=== PATIENT | male | born 1955 | race Caucasian/White ===

== ENCOUNTER 2019-07-17 13:01 | Outpatient (CLI) | payer MEDICARE, OTHER, SELFPAY ==
[2019-07-17 14:30] VITALS: O2SAT 88
== END 2019-07-17 13:02 | disposition home or self-care (01) ==
LOC: RT 13:02
PROVIDERS: Family Provider Family Medicine; PCP Family Medicine; Visit Provider Internal Medicine Critical Care Medicine
DX: J44.9 Chronic obstructive pulmonary disease, unspecified (principal)
CPT/HCPCS: 94060; 94726; 94729; J7611

== ENCOUNTER 2019-07-19 08:59 | Outpatient (CLI) | payer MEDICARE, OTHER, SELFPAY ==
--- NOTE | 2019-07-19 09:07 | MM_ITS ---
WS: [id number] BILATERAL DIGITAL DIAGNOSTIC MAMMOGRAM MAMMOGRAPHY WITH CAD CLINICAL INFORMATION: GYNECOMASTIA ON LEFT COMPARISON: None. TECHNIQUE: Bilateral CC, MLO, and ML views. FINDINGS: Subareolar fibroglandular densities bilaterally. Fibroglandular tissue more prominent on the left. Pa lpable marker left areola region. No definite mammographic abnormalities. Ultrasound is pending. ULTRASOUND BREAST LEFT TECHNIQUE: Ultrasound left breast focused area of concern. CLINICAL INFORMATION: GYNECOMASTIA ON LEFT COMPARISON: None. FINDINGS: Ultrasound bilateral breasts. Ultrasound left breast area of concern. Bilateral subareolar fibrogland ular tissue consistent with mild gynecomastia left greater than right. No focal mass or lesion. No le sions to target for biopsy. MM/[place] [id number] IMPRESSION: BI-RADS: 2-Benign FOLLOW UP: See Report Additional management of the palpable abnormality should be based on clinical g rounds.
== END 2019-07-19 09:00 | disposition home or self-care (01) ==
LOC: RADSHAW 08:59
PROVIDERS: Family Provider Family Medicine; PCP Family Medicine; Visit Provider Family Medicine
DX: N62 Hypertrophy of breast (principal)
CPT/HCPCS: 76642; 77066

== ENCOUNTER 2019-12-13 08:06 | Outpatient (CLI) | payer MEDICARE, BC, SELFPAY ==
--- NOTE | 2019-12-13 08:15 | CT_ITS ---
WS: [id number] CT CHEST WITH INTRAVENOUS CONTRAST HISTORY: LUNG NODULE TECHNIQUE: Contiguous 5 mm axial imaging performed on the thorax. Coronal and sagittal reformats are submitted. All CT scans at [facility] use at least one of these dose optimization techniq ues: automated exposure control; mA and/or kV adjustment per patient size (includes targeted exams wh ere dose is matched to clinical indication); or iterative reconstruction. CONTRAST: Omnipaque 300; 95 mL IV. DLP: 559.6 mGy.cm COMPARISON: 04/10/2019, 03/14/2018, 11/11/2016 Lungs and central airway: Hyperinflated lungs. Chronic emphysema with biapical blebs and pleural thic kening. Bilateral upper lobe bulla disease. 5 mm nodule in the LEFT upper lobe, image 26 of series 3. No change since 2012. There is an additional 5 mm nodule adjacent to the superior LEFT major fissure in the LEFT upper lobe measuring 5 mm which is also stable since 2012. There is an area of pleural t hickening and tethering RIGHT upper lobe in contact with the major fissure. Slightly improved and dec reased in size since 04/10/2019. Pleura: Normal. No pleural effusion. Heart and pericardium: Normal size heart. No pericardial effusion. Mediastinum and reynaldo: RIGHT hilar lymph node measures 7 mm. No increasing or new lymph nodes. Vessels: Mild atherosclerosis aorta. Chest wall and lower neck: No soft tissue masses. Upper abdomen: Small hiatal hernia. Mild stranding around the kidneys bilaterally. Osseous structures: Vertebroplasty at T6 and chronic anterior wedging with no change. CT/CT chest w con* [id number] IMPRESSION: 1. Severe chronic emphysema. 2. Long-term stability of 5 mm noncalcified nodules LEFT upper lobe. No additi onal follow-up necessary. 3. Atherosclerosis aorta. 4. Small hiatal hernia.
[2019-12-13] MEDS: iohexol 300 mg/mL 100 mL Btl IV (08:58)
== END 2019-12-13 08:07 | disposition home or self-care (01) ==
LOC: RADWPI 08:10
PROVIDERS: PCP Family Medicine; Visit Provider Nurse Practitioner Family
DX: R91.1 Solitary pulmonary nodule (principal); J43.9 Emphysema, unspecified; I70.0 Atherosclerosis of aorta; K44.9 Diaphragmatic hernia without obstruction or gangrene
CPT/HCPCS: 71260; Q9967

== ENCOUNTER 2020-03-01 15:01 | Inpatient (IN) | payer MEDICARE, BC, SELFPAY ==
[2020-03-01] VITALS (12 sets, daily range): BP systolic 100–134; BP diastolic 57–77; PULSE 66–88; RESP 17–22; TEMP 36.7–36.8; O2SAT 96–100; BMI 16.5
--- NOTE | 2020-03-01 15:03 | CT_ITS ---
WS: [id number] CT HEAD NONCONTRAST HISTORY: falls TECHNIQUE: Contiguous axial imaging performed through the brain in 2.5 mm imaging. Bone and soft tiss ue windows. Sagittal and coronal reformats reviewed. All CT scans at [facility] use at ast one of these dose optimization techniques: automated exposure control; mA and/or kV adjustment pe r patient size (includes targeted exams where dose is matched to clinical indication); or iterative r econstruction. DLP: 846.53 mGy.cm COMPARISON: 07/18/2017 No acute intracranial hemorrhage, midline shift or mass effect. No atrophy or prior infarcts or herniation. Ventricles: Normal size with no hydrocephalus. Paranasal sinuses: As visualized are clear. Mastoid air cells: Well pneumatized. Calvarium and scalp: Skull is intact with no soft tissue edema or swelling. CT/CT head wo con* [id number] IMPRESSION: Negative head CT.
--- NOTE | 2020-03-01 15:03 | XRR_ITS ---
PROCEDURE INFORMATION: Exam: XR Chest, 1 View Exam date and time: 03/01/2020 3:15 PM Age: 64 years old Clinical indication: Injury or trauma; Initial encounter; Blunt trauma (contusions or hematomas); Shortness of breath; Patient HX: Double vision, falls, SOB, weak TECHNIQUE: Imaging protocol: XR of the chest Views: 1 view. COMPARISON: CT chest w con* [id number] 12/13/2019 8:49 AM FINDINGS: Lungs: The lungs are hyperexpanded consistent with COPD. Pleural space: Unremarkable. No pleural effusion. No pneumothorax. Heart/Mediastinum: Unremarkable. No cardiomegaly. Bones/joints: Kyphoplasty is present in the T6 vertebral body. XR/XR chest 1V portable [id number] IMPRESSION: 1. No acute findings. 2. COPD 3. Left hilar granulomas 4. Postsurgical hardware cervical spine 5. Kyphoplasty T6 vertebral body
[2020-03-01 15:21] LABS: Arterial Blood Gas Hematocrit 36.9 % (42-52); Blood Gas Allen Test Pos; Blood Gas Sample Type Arterial; PO2 ABG 87.6 mmHg (80.0-100.0)
[2020-03-01 15:22] LABS: ABG PCO2 84.5 mmHg (35-45); Base Excess ABG 23.3 mmol/L (-2.0-2.0); Blood Gas Operator Identificat ED; Blood Gas Sample Site Radial, right; HCO3 ABG 52.7 mmol/L (22-26); Oxygen Device NC
[2020-03-01 15:23] LABS: Basophils % 0.2 %; Eosinophils % 0.2 %; Hematocrit 43.7 % (42.0-52.0); Hemoglobin 13.3 g/dL (11.7-16.6); Lymphocytes # 1.9 10^3/uL (0.8-4.8); Lymphocytes % 20.8 %; Mean Corpuscular HGB Conc 30.4 g/dL (30.0-36.0); Mean Corpuscular Hemoglobin 29.9 pg (28.0-34.0); Mean Corpuscular Volume 98.2 fL (80-94); Mean Platelet Volume 12.9 fL (7.4-10.4); Monocytes # 0.6 10^3/uL (0.2-0.9); Monocytes % 6.4 %; Neutrophils # 6.72 10^3/uL (1.8-7.7); Neutrophils % 72.1 %; Nucleated Red Blood Cells % 0 %; Platelet Count 151 10^3/cmm (130-400); Red Blood Count 4.45 10^6/uL (4.1-5.3); Red Cell Distribution Width 12.4 % (12.1-15.1); White Blood Count 9.3 10^3/uL (4.0-10.0)
--- NOTE | 2020-03-01 15:23 | XRR_ITS ---
PROCEDURE INFORMATION: Exam: XR Right Foot Complete Exam date and time: 03/01/2020 4:20 PM Age: 64 years old Clinical indication: Pain and injury or trauma; Initial encounter; Blunt trauma; Foot; Bilateral; Patient HX: Sob/weakness last 2 days with multiple falls; Additional info: Pain/injury TECHNIQUE: Imaging protocol: XR Right foot. Views: 3 or more views. COMPARISON: No relevant prior studies available. FINDINGS: Bones/joints: Negative for acute bony abnormalities. Soft tissues: Soft tissue edema is seen in the dorsal foot XR/XR foot RT min 3V* [id number] IMPRESSION: 1. No acute bone abnormality 2. Soft tissue edema dorsal foot
--- NOTE | 2020-03-01 15:23 | XRR_ITS ---
PROCEDURE INFORMATION: Exam: XR Left Foot Complete Exam date and time: 03/01/2020 4:20 PM Age: 64 years old Clinical indication: Pain and injury or trauma; Initial encounter; Blunt trauma; Foot; Bilateral; Patient HX: SOB, weakness with multiple falls; Additional info: Pain/injury TECHNIQUE: Imaging protocol: XR Left foot. Views: 3 or more views. COMPARISON: No relevant prior studies available. FINDINGS: Bones/joints: Negative for acute fracture or focal bony abnormality. Soft tissues: Diffuse soft tissue edema dorsal foot XR/XR foot LT min 3V* [id number] IMPRESSION: 1. Diffuse soft tissue edema dorsal foot 2. Otherwise No acute findings.
--- NOTE | 2020-03-01 15:23 | ECG_ITS ---
[facility] Test Date: 2020-03-01 Pat Name: Harvey Guerra Department: Room: Gender: Male Disability Insurance Claim Examiner: : 1955 Requested By: Karin Roberts Order Number: [id number] Farrell MD: Galilea Blakely M.D. Measurements Intervals [place] Rate: 69 P: 81 OR: 145 QRS: 93 QRSD: 81 T: 71 QT: 385 QTc: 413 Interpretive Statements SINUS RHYTHM BORDERLINE RIGHT AXIS DEVIATION [QRS AXIS > 90] Compared to ECG 04/06/2019 11:26:46 Sinus tachycardia no longer present T-wave abnormality no longer present Possible ischemia no longer present Electronically Signed On 03-02-2020 8:17:41 CDT by Galilea Blakely M.D. [id number]
--- NOTE | 2020-03-01 15:42 | W.ED.WEAKNES ---
HPI - Weakness General: Chief complaint: Weakness Stated complaint: SOB/ WEAKNESS/ MULTI FALLS Time Seen by Provider: 03/01/20 15:14 Source: patient and family Limitations: no limitations History of Present Illness: HPI Narrative: Mr. Guerra is a nice 64-year-old male who comes in complaining of increased shortness of breath for the past 2 days. He is also complaining of increased weakness for the past 2 days. He states that he is fallen twice because of this weakness. He has pain in both feet from the fall. He states that he does have a cough that is productive of clear sputum. He denies any fevers or chills. He denies any other complaints. Associated symptoms: Denies chest pain, chills, confusion, melena, diaphoresis, dysuria, easy bruising, fever(s), headache(s), nausea, syncope or vomiting Review of Systems Const: Denies: fever(s), chills, body aches or diaphoresis Eyes: Denies: change in vision, blurry vision, photophobia, eye discomfort, eye discharge, eye redness or yellow eyes ENMT: Denies: throat pain, odynophagia, hoarseness, swelling of lips/tongue, ear or mastoid pain, ear discharge, change in hearing or nasal discharge Card: Denies: chest pain, palpitations, irregular heart rhythm, edema, lightheadedness, syncope, pre-syncope, dyspnea on exertion or orthopnea Resp: Reports: dyspnea and productive cough; Denies: wheezing, hemoptysis or chest congestion GI: Denies: abdominal pain, nausea, vomiting, hematemesis, coffee ground emesis, heartburn, diarrhea, constipation, GI cramping, hematochezia or melena : Denies: flank pain, dysuria, urinary frequency, urinary urgency or hematuria Musc: Denies: neck pain, back pain, extremity pain, extremity swelling, joint pain, joint swelling, joint redness, joint warmth or joint stiffness Skin/Breast: Denies: rash, pruritus, erythema, skin pain or skin tenderness Neuro: Denies: headache(s), numbness in extremities, weakness in extremities, sensory changes, lack of coordination, difficulty walking, dizziness, vertigo, confusion, Slurred speech present or seizure-like activity Carlos/Lymph: Denies: easy bruising, easy bleeding, petechiae, purpura or enlarged lymph nodes All/Imm: Denies: urticaria, throat swelling, tongue swelling, facial swelling or acute wheezing PFSH ED PFSH: Medical History (Updated 03/01/20 @ 15:45 by Karin Snyder) Bronchitis, chronic Bullous emphysema Chronic respiratory failure with hypoxia and hypercapnia Congestive heart failure COPD (chronic obstructive pulmonary disease) Essential (primary) hypertension Heart attack Hypoxemia Pressure ulcer, buttock Surgical History H/O hernia repair H/O neck surgery H/O rotator cuff surgery H/O shoulder surgery History of back surgery S/P ileostomy Family History Mother Hyperlipidemia Father Hyperlipidemia Stroke Grandmother Diabetes Social History Smoking and tobacco status: former smoker Quit status (tobacco): has quit using tobacco Year quit tobacco: Mar 2019 - 2PPD x 47 Year Alcohol intake: former Lives independently: Yes Household members: children Current occupational status: retired History of recent travel: No Current gender identity: Male Course Vital Signs: Vital signs: Vital Signs Temperature 98.1 F 03/01/20 15:03 Pulse Rate 76 03/01/20 19:47 Respiratory Rate 21 H 03/01/20 19:47 Blood Pressure 113/68 03/01/20 19:47 Pulse Oximetry 97 03/01/20 19:47 MDM - Weakness MDM Narrative: Medical decision making narrative: Mr. Guerra is a nice 64-year-old male who comes in with generalized weakness for the past 2 days. He has had multiple falls and here he is orthostatic. I am also concerned that he is somewhat oversedated by his narcotic medication. His respiratory distress has improved but I believe he is dehydrated and oversedated and at risk if he goes home. I have reviewed the case with Dr. Olson he agrees to further evaluation care in the hospital. Lab Data: Attestation: I reviewed the patient's lab results. Labs: Lab Results 03/01/20 03/01/20 03/01/20 Range/Units 14:35 14:35 14:35 WBC 9.3 (4.0-10.0) 10^3/ uL RBC 4.45 (4.1-5.3) 10^6/u L Hgb 13.3 (11.7-16.6) g/dL Hct 43.7 (42.0-52.0) % MCV 98.2 H (80-94) fL MCH 29.9 (28.0-34.0) pg MCHC 30.4 (30.0-36.0) g/dL RDW 12.4 (12.1-15.1) % Plt Count 151 (130-400) 10^3/c mm MPV 12.9 H (7.4-10.4) fL Neut % (Auto) 72.1 % Lymph % (Auto) 20.8 % [place] % (Auto) 6.4 % Eos % (Auto) 0.2 % Baso % (Auto) 0.2 % Neut # (Auto) 6.72 (1.8-7.7) 10^3/u L Lymph # (Auto) 1.9 (0.8-4.8) 10^3/u L [place] # (Auto) 0.6 (0.2-0.9) 10^3/u L Eos # (Auto) 0.0 (0.0-0.8) 10^3/u L Baso # (Auto) 0.0 (0.0-0.1) 10^3/u L Nucleated RBC % (a uto) 0 % Nucleated RBCs # 0.0 /100WBC Specimen Type Sample Site ABG pH (7.35-7.45) ABG pCO2 (35-45) mmHg ABG pO2 (80.0-100.0) mmH g ABG HCO3 (22-26) mmol/L ABG Base Excess (-2.0-2.0) mmol/ L Wil Test Hematocrit (42-52) % O2 Delivery Device O2 Liters/Min % FiO2 % Metal Furniture Repairer ID Sodium 131 L (136-145) mmol/L Potassium 4.4 (3.5-5.1) mmol/L Chloride 79 L (98-107) mmol/L Carbon Dioxide 47 H* (22-29) mmol/L Anion Gap 9.4 (5-19) BUN 9 (8-23) mg/dL Creatinine 0.6 L (0.7-1.2) mg/dL GFR Calculation 136.1 H (90-130) mL/min Glucose 129 H (65-115) mg/dL Calculated Osmolal ity 272 L (285-295) mOsm/k g Lactate (0.5-2.2) mmol/L Calcium 9.7 (8.5-10.5) mg/dL Magnesium 1.7 (1.7-2.3) mg/dL Total Bilirubin 0.4 (0.15-1.2) mg/dL AST 17 (0-40) U/L ALT 12 (0-41) U/L Alkaline Phosphata se 59 (40-130) IU/L Troponin T Baselin e 36 H (0-15) ng/L Troponin T 120 Min [place] (0-15) ng/L Delta Troponin T (0-10) ABS# NT-Pro-B Natriuret Pep 133 H (0-125) pg/mL Total Protein 6.6 (6.6-8.7) g/dL Albumin 4.0 (3.5-5.2) g/dL Globulin 2.6 (1.3-4.6) g/dL Urine Color (Yellow) Urine Appearance (CLEAR) Urine pH (5-7) Ur Specific Gravit y (1.005-1.030) Urine Protein (Negative) Urine Glucose (UA) (Normal) Urine Ketones (Negative) Urine Blood (Negative) Urine Nitrate (Negative) Urine Bilirubin (Negative) Prot Sulfosalicyli c Acd (Negative) Urine Urobilinogen (Negative) mg/dL Ur Leukocyte Marcela ase (Negative) Urine RBC (0-2) /hpf Urine WBC (0-5) /hpf Ur Squamous Epith Cells (0-5) /hpf Amorphous Sediment Urine Bacteria (NONE) /hpf SARS-CoV-2 Ag (Rap id) (Negative) 03/01/20 03/01/20 03/01/20 Range/Units 15:11 16:09 16:55 WBC (4.0-10.0) 10^3/ uL RBC (4.1-5.3) 10^6/u L Hgb (11.7-16.6) g/dL Hct (42.0-52.0) % MCV (80-94) fL MCH (28.0-34.0) pg MCHC (30.0-36.0) g/dL RDW (12.1-15.1) % Plt Count (130-400) 10^3/c mm MPV (7.4-10.4) fL Neut % (Auto) % Lymph % (Auto) % [place] % (Auto) % Eos % (Auto) % Baso % (Auto) % Neut # (Auto) (1.8-7.7) 10^3/u L Lymph # (Auto) (0.8-4.8) 10^3/u L [place] # (Auto) (0.2-0.9) 10^3/u L Eos # (Auto) (0.0-0.8) 10^3/u L Baso # (Auto) (0.0-0.1) 10^3/u L Nucleated RBC % (a uto) % Nucleated RBCs # /100WBC Specimen Type Arterial Sample Site Radial, right ABG pH 7.40 (7.35-7.45) ABG pCO2 84.5 H* (35-45) mmHg ABG pO2 87.6 (80.0-100.0) mmH g ABG HCO3 52.7 H (22-26) mmol/L ABG Base Excess 23.3 H (-2.0-2.0) mmol/ L Wil Test Pos Hematocrit 36.9 L (42-52) % O2 Delivery Device Nc O2 Liters/Min 3.0 % FiO2 32.0 % Metal Furniture Repairer ID Ed Sodium (136-145) mmol/L Potassium (3.5-5.1) mmol/L Chloride (98-107) mmol/L Carbon Dioxide (22-29) mmol/L Anion Gap (5-19) BUN (8-23) mg/dL Creatinine (0.7-1.2) mg/dL GFR Calculation (90-130) mL/min Glucose (65-115) mg/dL Calculated Osmolal ity (285-295) mOsm/k g Lactate 0.9 (0.5-2.2) mmol/L Calcium (8.5-10.5) mg/dL Magnesium (1.7-2.3) mg/dL Total Bilirubin (0.15-1.2) mg/dL AST (0-40) U/L ALT (0-41) U/L Alkaline Phosphata se (40-130) IU/L Troponin T Baselin e (0-15) ng/L Troponin T 120 Min [place] (0-15) ng/L Delta Troponin T (0-10) ABS# NT-Pro-B Natriuret Pep (0-125) pg/mL Total Protein (6.6-8.7) g/dL Albumin (3.5-5.2) g/dL Globulin (1.3-4.6) g/dL Urine Color (Yellow) Urine Appearance (CLEAR) Urine pH (5-7) Ur Specific Gravit y (1.005-1.030) Urine Protein (Negative) Urine Glucose (UA) (Normal) Urine Ketones (Negative) Urine Blood (Negative) Urine Nitrate (Negative) Urine Bilirubin (Negative) Prot Sulfosalicyli c Acd (Negative) Urine Urobilinogen (Negative) mg/dL Ur Leukocyte Marcela ase (Negative) Urine RBC (0-2) /hpf Urine WBC (0-5) /hpf Ur Squamous Epith Cells (0-5) /hpf Amorphous Sediment Urine Bacteria (NONE) /hpf SARS-CoV-2 Ag (Rap id) Negative (Negative) 03/01/20 03/01/20 Range/Units 16:55 17:56 WBC (4.0-10.0) 10^3/ uL RBC (4.1-5.3) 10^6/u L Hgb (11.7-16.6) g/dL Hct (42.0-52.0) % MCV (80-94) fL MCH (28.0-34.0) pg MCHC (30.0-36.0) g/dL RDW (12.1-15.1) % Plt Count (130-400) 10^3/c mm MPV (7.4-10.4) fL Neut % (Auto) % Lymph % (Auto) % [place] % (Auto) % Eos % (Auto) % Baso % (Auto) % Neut # (Auto) (1.8-7.7) 10^3/u L Lymph # (Auto) (0.8-4.8) 10^3/u L [place] # (Auto) (0.2-0.9) 10^3/u L Eos # (Auto) (0.0-0.8) 10^3/u L Baso # (Auto) (0.0-0.1) 10^3/u L Nucleated RBC % (a uto) % Nucleated RBCs # /100WBC Specimen Type Sample Site ABG pH (7.35-7.45) ABG pCO2 (35-45) mmHg ABG pO2 (80.0-100.0) mmH g ABG HCO3 (22-26) mmol/L ABG Base Excess (-2.0-2.0) mmol/ L Wil Test Hematocrit (42-52) % O2 Delivery Device O2 Liters/Min % FiO2 % Metal Furniture Repairer ID Sodium (136-145) mmol/L Potassium (3.5-5.1) mmol/L Chloride (98-107) mmol/L Carbon Dioxide (22-29) mmol/L Anion Gap (5-19) BUN (8-23) mg/dL Creatinine (0.7-1.2) mg/dL GFR Calculation (90-130) mL/min Glucose (65-115) mg/dL Calculated Osmolal ity (285-295) mOsm/k g Lactate (0.5-2.2) mmol/L Calcium (8.5-10.5) mg/dL Magnesium (1.7-2.3) mg/dL Total Bilirubin (0.15-1.2) mg/dL AST (0-40) U/L ALT (0-41) U/L Alkaline Phosphata se (40-130) IU/L Troponin T Baselin e (0-15) ng/L Troponin T 120 Min [place] 41.38 H (0-15) ng/L Delta Troponin T 5.38 (0-10) ABS# NT-Pro-B Natriuret Pep (0-125) pg/mL Total Protein (6.6-8.7) g/dL Albumin (3.5-5.2) g/dL Globulin (1.3-4.6) g/dL Urine Color Yellow (Yellow) Urine Appearance Sl hazy (CLEAR) Urine pH 8 H (5-7) Ur Specific Gravit y 1.010 (1.005-1.030) Urine Protein Neg (Negative) Urine Glucose (UA) Norm (Normal) Urine Ketones 1+ H (Negative) Urine Blood Neg (Negative) Urine Nitrate Negative (Negative) Urine Bilirubin Neg (Negative) Prot Sulfosalicyli c Acd Negative (Negative) Urine Urobilinogen Norm (Negative) mg/dL Ur Leukocyte Marcela ase Negative (Negative) Urine RBC None (0-2) /hpf Urine WBC 0-4 H (0-5) /hpf Ur Squamous Epith Cells 15-25 H (0-5) /hpf Amorphous Sediment Not Reportable Urine Bacteria Trace (NONE) /hpf SARS-CoV-2 Ag (Rap id) (Negative) Imaging Data^: CXR: Attestation: I personally reviewed and interpreted this imaging study as follows: My impression: No acute cardiopulmonary findings. Findings consistent with COPD. Right foot: Radiologist's impression: [place] [address] XRay Report Signed Patient: Harvey Guerra Unit #: [id number] : 1955 Age/Sex: 64 / M ADM Date: 03/01/20 Loc: ER Room/Bed: Attending Dr: Ordering Provider/Ordering MD: Karin Snyder DO Date of Service: 03/01/20 Procedure(s): XR foot RT min 3V* [id number] Accession Number(s): [id number] Report Number: [id number] PROCEDURE INFORMATION: Exam: XR Right Foot Complete Exam date and time: 03/01/2020 4:20 PM Age: 64 years old Clinical indication: Pain and injury or trauma; Initial encounter; Blunt trauma; Foot; Bilateral; Patient HX: Sob/weakness last 2 days with multiple falls; Additional info: Pain/injury TECHNIQUE: Imaging protocol: XR Right foot. Views: 3 or more views. COMPARISON: No relevant prior studies available. FINDINGS: Bones/joints: Negative for acute bony abnormalities. Soft tissues: Soft tissue edema is seen in the dorsal foot XR/XR foot RT min 3V* [id number] IMPRESSION: 1. No acute bone abnormality 2. Soft tissue edema dorsal foot Dictated By: Saurav Dempsey Signed By: Saurav Dempsey Signed Date/Time: 03/01/20 1641 DD/ 1640 Left foot: Radiologist's impression: [place] [address] XRay Report Signed Patient: Harvey Guerra Unit #: [id number] : 1955 Age/Sex: 64 / M ADM Date: 03/01/20 Loc: ER Room/Bed: Attending Dr: Ordering Provider/Ordering MD: Karin Snyder DO Date of Service: 03/01/20 Procedure(s): XR foot LT min 3V* 29595 Accession Number(s): [id number] Report Number: [id number] PROCEDURE INFORMATION: Exam: XR Left Foot Complete Exam date and time: 03/01/2020 4:20 PM Age: 64 years old Clinical indication: Pain and injury or trauma; Initial encounter; Blunt trauma; Foot; Bilateral; Patient HX: SOB, weakness with multiple falls; Additional info: Pain/injury TECHNIQUE: Imaging protocol: XR Left foot. Views: 3 or more views. COMPARISON: No relevant prior studies available. FINDINGS: Bones/joints: Negative for acute fracture or focal bony abnormality. Soft tissues: Diffuse soft tissue edema dorsal foot XR/XR foot LT min 3V* [id number] IMPRESSION: 1. Diffuse soft tissue edema dorsal foot 2. Otherwise No acute findings. Dictated By: Saurav Dempsey Signed By: Saurav Dempsey Signed Date/Time: 03/01/20 1640 DD/ 1639 CT Head: Radiologist's impression: [place] [address] CT Scan Report Signed Patient: Harvey Guerra Unit #: [id number] : 1955 Age/Sex: 64 / M ADM Date: 03/01/20 Loc: ER Room/Bed: Attending Dr: Ordering Provider/Ordering MD: Idania Benitez , [facility]- Date of Service: 03/01/20 Procedure(s): CT head wo con* [id number] Accession Number(s): [id number] Report Number: [id number] WS: [id number] CT HEAD NONCONTRAST HISTORY: falls TECHNIQUE: Contiguous axial imaging performed through the brain in 2.5 mm imaging. Bone and soft tissue windows. Sagittal and coronal reformats reviewed. All CT scans at [facility] use at least one of these dose optimization techniques: automated exposure control; mA and/or kV adjustment per patient size (includes targeted exams where dose is matched to clinical indication); or iterative reconstruction. DLP: 846.53 mGy.cm COMPARISON: 07/18/2017 No acute intracranial hemorrhage, midline shift or mass effect. No atrophy or prior infarcts or herniation. Ventricles: Normal size with no hydrocephalus. Paranasal sinuses: As visualized are clear. Mastoid air cells: Well pneumatized. Calvarium and scalp: Skull is intact with no soft tissue edema or swelling. CT/CT head wo con* [id number] IMPRESSION: Negative head CT. Dictated By: Sabrina Mack DO Signed By: Sabrina Mack DO Signed Date/Time: 03/01/201546 DD/ EKG Data^: EKG 1: Attestation: I personally reviewed and interpreted this EKG as follows: EKG interpretation date: 03/01/20 EKG interpretation time: 15:48 Interpretation: Normal sinus rhythm at 69 beats a minute, no blocks, normal intervals, nonspecific ST and T wave changes. EKG 2: Attestation: I personally reviewed and interpreted this EKG as follows: EKG interpretation date: 03/01/20 EKG interpretation time: 17:59 Interpretation: Normal sinus rhythm at 65 beats a minute, no acute ST-T wave changes. Discharge Plan Discharge Prescriptions: No Action oxycodone 5 mg tablet 5 mg PO Q6H PRN (Reason: Pain) RF: 0 morphine 30 mg capsule, ER multiphase 24 hr 30 mg PO Q12H RF: 0 gabapentin 800 mg tablet 800 mg PO TID RF: 0 aspirin 81 mg tablet,delayed release (DR/EC) 81 mg PO ONCE RF: 0 montelukast [Singulair] 10 mg tablet 10 mg PO ONCE RF: 0 fluoxetine 10 mg tablet 10 mg PO DAILY RF: 0 tizanidine 4 mg tablet 4 mg PO TID PRN (Reason: MUSCLE SPASMS) RF: 0 spironolactone 25 mg tablet 25 mg PO DAILY RF: 0 folic acid 1 mg tablet 1 mg PO DAILY RF: 0 albuterol sulfate [Ventolin HFA] 90 mcg/actuation HFA aerosol inhaler 2 puff INHALATION Q6H PRN (Reason: Shortness Of Breath) RF: 0 lorazepam 0.5 mg tablet 0.5 mg PO DAILY PRN (Reason: Anxiety) RF: 0 carvedilol 12.5 mg tablet 6.25 mg PO BID RF: 0 albuterol sulfate 2.5 mg /3 mL (0.083 %) solution for nebulization 2.5 mg INHALATION Q6H PRN (Reason: Shortness Of Breath) RF: 0 metoprolol succinate 25 mg tablet extended release 24 hr 25 mg PO DAILY 90 Days Qty: 90 RF: 3 formoterol fumarate [Perforomist] 20 mcg/2 mL solution for nebulization See Rx Instructions .ROUTE .COMPLEX Qty: 60 RF: 11 revefenacin [Yupelri] 175 mcg/3 mL solution for nebulization See Rx Instructions .ROUTE .COMPLEX Qty: 30 RF: 11 budesonide 0.5 mg/2 mL suspension for nebulization See Rx Instructions .ROUTE .COMPLEX Qty: 60 RF: 11 Coding Level of Care Code ED [place] Manager for Khushboo Hyman
[2020-03-01 15:51] LABS: Alanine Aminotransferase 12 U/L (0-41); Alkaline Phosphatase 59 IU/L (40-130); Anion Gap 9.4 (5-19); Aspartate Amino Transferase 17 U/L (0-40); Blood Urea Nitrogen 9 mg/dL (8-23); Calcium 9.7 mg/dL (8.5-10.5); Chloride 79 mmol/L (98-107); Globulin 2.6 g/dL (1.3-4.6); Glomerular Filtration Rate 136.1 mL/min (90-130); Glucose 129 mg/dL (65-115); Magnesium 1.7 mg/dL (1.7-2.3); NT Pro B Type Natriuretic Pept 133 pg/mL (0-125); Osmolality Calculated 272 mOsm/kg (285-295); Potassium 4.4 mmol/L (3.5-5.1); Sodium 131 mmol/L (136-145); Total Bilirubin 0.4 mg/dL (0.15-1.2); Total Protein 6.6 g/dL (6.6-8.7)
[2020-03-01 15:54] LABS: Carbon Dioxide 47 mmol/L (22-29)
[2020-03-01 16:31] LABS: Troponin(5th) Baseline 36 ng/L (0-15)
[2020-03-01 16:34] LABS: Lactate (Lactic Acid level) 0.9 mmol/L (0.5-2.2)
--- NOTE | 2020-03-01 16:53 | PC.NURSE ---
patient swabbed for COVID at this time
[2020-03-01] MEDS: albuterol 8 gm MDI 6 PUFF INHALATION (17:03)
--- NOTE | 2020-03-01 17:23 | ECG_ITS ---
[facility] Test Date: 2020-03-01 Pat Name: Harvey Guerra Department: Room: Gender: Male Bin Tripper Operator: : 1955 Requested By: Karin Roberts Order Number: [id number] Farrell MD: Galilea Blakely M.D. Measurements Intervals [place] Rate: 65 P: 78 [place]: 143 QRS: 93 QRSD: 86 T: 65 QT: 400 QTc: 418 Interpretive Statements SINUS RHYTHM BORDERLINE RIGHT AXIS DEVIATION [QRS AXIS > 90] Compared to ECG 03/01/2020 15:48:49 No significant changes Electronically Signed On 03-02-2020 8:55:35 CDT by Galilea Blakely M.D. [id number]
[2020-03-01 17:26] LABS: Add Urine Microscopic? YES; Bilirubin Urine Neg (Negative); Blood Urine Neg (Negative); Glucose Urine UA Norm (Normal); Ketones Urine 1+ (Negative); Leukocyte Esterase Urine Negative (Negative); Nitrate Urine Negative (Negative); Protein Urine Neg (Negative); Sulfosalicylic Acid Urine Negative (Negative); Urine Appearance SL Hazy (CLEAR); Urine Color Yellow (Yellow); Urobilinogen Urine Norm (Negative); pH Urine 8 (5-7)
[2020-03-01 17:34] LABS: Add Urine Culture? No; Bacteria Urine TRACE /hpf; SARS Covid-2 Antigen Negative (Negative); Squamous Epithelial Cell Urine 15-25 /hpf (0-5); WBC Urine 0-4 /hpf (0-5)
[2020-03-01 18:41] LABS: Troponin 5 2HR 41.38 ng/L (0-15); Troponin 5 2HR Delta 5.38 ABS# (0-10)
--- NOTE | 2020-03-01 19:56 | PM.HP ---
Providers/Chief Complaint Primary Care Provider: Ortega Woods MD Chief Complaint: SOB/ WEAKNESS/ MULTI FALLS History of Present Illness Harvey Guerra is a 64 year old male who carries history of oxygen dependent end-stage COPD, came in with chief complaint of generalized weakness and presyncope. Patient is stating that he has been losing weight, he recently has not noticed fever, excessive sputum production, he is using 3 L of oxygen via the clock, his legs have been swollen for last couple of months, he is usually very tired and struggles to get around in his home, he decided to come to the hospital because of extreme lethargy and presyncopal events. He is stating that his energy level has gone down to the point he is not able to bear weight on his legs, he has fallen on the ground without any syncopal event due to extreme weakness. He has not noticed any chest pain, fever, dysuria, change in bowel movements or seizure-like activities. He uses trilogy at night. He is on multiple narcotics including morphine tizanidine oxycodone and gabapentin, beta-jossy and calcium channel jossy. Diagnostics in the ER revealed normal hemodynamics, he saturating well on 2 L nasal cannula, pH 7.4 PCO2 80, no active restaurant distress seems well compensated, malnourished, BNP 133 with active signs of heart failure, COVID antigen negative, EKG unremarkable for ischemic or infarctive changes, I have requested CTA chest which ruled out pulmonary embolism but x-ray revealed severe edema, no active fractures, head CT unremarkable Review of Systems Const: Reports: chills, body aches, change in appetite, change in weight, fatigue and malaise; Denies: fever(s) Eyes: Denies: change in vision ENMT: Denies: throat pain Card: Reports: edema, swelling of feet/ankles, lightheadedness, pre-syncope and dyspnea on exertion; Denies: chest pain or orthopnea Resp: Reports: dyspnea and non-productive cough GI: Denies: abdominal pain : Denies: flank pain Musc: Reports: neck pain and back pain Skin/Breast: Reports: lesions (Scab around sacral area well-healed lesion) Neuro: Reports: frequent falls Psych: Denies: anxiety Endo: Denies: polyuria Carlos/Lymph: Denies: easy bruising All/Imm: Denies: urticaria Medications/Allergies Home Medications Medication Instructions Recorded Confirmed Last Taken Type albuterol sulfate 90 mcg/actuation 2 puff INHALATION Q6H PRN 06/26/19 03/01/20 Unknown History aerosol inhaler fluoxetine 10 mg tablet 10 mg PO DAILY tab 06/26/19 03/01/20 03/01/20 History folic acid 1 mg tablet 1 mg PO DAILY 06/26/19 03/01/20 03/01/20 History spironolactone 25 mg tablet 25 mg PO DAILY tab 06/26/19 03/01/20 03/01/20 History tizanidine 4 mg tablet 4 mg PO TID PRN 06/26/19 03/01/20 03/01/20 History aspirin 81 mg tablet,delayed 81 mg PO ONCE 06/27/19 03/01/20 03/01/20 History release carvedilol 12.5 mg tablet 6.25 mg PO BID tab 06/27/19 03/01/20 03/01/20 History gabapentin 800 mg tablet 800 mg PO TID 06/27/19 03/01/20 03/01/20 History lorazepam 0.5 mg tablet 0.5 mg PO DAILY PRN tab 06/27/19 03/01/20 02/29/20 History montelukast 10 mg tablet 10 mg PO ONCE 06/27/19 03/01/20 03/01/20 History morphine 30 mg capsule,extended 30 mg PO Q12H cap 06/27/19 03/01/20 03/01/20 History release 24 hr multiphase oxycodone 5 mg tablet 5 mg PO Q6H PRN 06/27/19 03/01/20 03/01/20 History albuterol sulfate 2.5 mg INHALATION Q6H PRN 08/08/19 03/01/20 03/01/20 History metoprolol succinate 25 mg 25 mg PO DAILY 90 Days #90 tab 10/16/19 03/01/20 03/01/20 Rx tablet,extended release 24 hr budesonide 0.5 mg/2 mL suspension See Rx Instructions .ROUTE 01/10/20 03/01/20 03/01/20 Rx for nebulization .COMPLEX #60 vial formoterol fumarate 20 mcg/2 mL See Rx Instructions .ROUTE 07/29/20 09/18/20 09/18/20 Rx solution for nebulization .COMPLEX #60 vial revefenacin 175 mcg/3 mL solution See Rx Instructions .ROUTE 01/10/20 03/01/20 03/01/20 Rx for nebulization .COMPLEX #30 vial Allergies Allergy/AdvReac Type Severity Reaction Status Date / Time No Known Allergies Allergy Verified 03/01/20 15:57 PFSH Acute PFSH: Medical History Bronchitis, chronic Bullous emphysema Chronic respiratory failure with hypoxia and hypercapnia Congestive heart failure COPD (chronic obstructive pulmonary disease) Essential (primary) hypertension Heart attack Hypoxemia Pressure ulcer, buttock Surgical History H/O hernia repair H/O neck surgery H/O rotator cuff surgery H/O shoulder surgery History of back surgery S/P ileostomy Family History Mother Hyperlipidemia Father Hyperlipidemia Stroke Grandmother Diabetes Social History Smoking and tobacco status: former smoker Quit status (tobacco): has quit using tobacco Year quit tobacco: Mar 2019 - 2PPD x 47 Year Alcohol intake: former Lives independently: Yes Household members: children Current occupational status: retired History of recent travel: No Current gender identity: Male Vitals/I&O/Wt Last Vital Signs Temp 98.1 F 03/01/20 15:03 Pulse 76 03/01/20 19:47 Resp 21 H 03/01/20 19:47 BP 113/68 03/01/20 19:47 Pulse Ox 97 03/01/20 19:47 Weight last 48 hrs Weight 53.524 kg Physical Exam Narrative: EXAM NARRATIVE: Malnourished, cachectic appearing male Currently saturating well on 3 L nasal cannula Muscle mass loss S1, S2 no tachycardia, Active signs of heart failure I do not appreciate JVD however bilateral lower extremity edema 2+ Abdomen soft nontender bowel sound present Lung auscultation he is barely moving any air, pursed lip breathing No cyanosis noticed, I did not hear any wheezing because of diminished airflow Neurological no active deficit Lower extremity edema with pedal edema Sacral area well-healed scar with a scab no active cellulitis Tracheostomy scar Data : 03/01/20 14:35 03/01/20 14:35 A&P Assessment and plan (1) End stage COPD: Status: Acute (2) Pedal edema: Status: Acute (3) Right-sided heart failure: Status: Acute (4) Polypharmacy: Status: Acute Additional A&P Information Generalized weakness secondary to end-stage COPD Well compensated hypercapnia No acute decompensation Diminished airflow Cachexia No active pneumonia, CTA chest rule out PE DuoNeb every 4 as needed Prednisone 20 mg twice daily Azithromycin for anti-inflammatory effect for end-stage COPD BiPAP at night Right-sided heart failure Clinical signs of right heart failure without pulmonary edema Pedal edema positive, BNP not significantly high, Would use low-dose Lasix for now Echo in the morning Likely etiology end-stage COPD with right-sided heart failure Polypharmacy Patient has been taking morphine, oxycodone along gabapentin and tizanidine I would only continue morphine for now Discontinue AV jerica blocking agent, does not carry history of A. fib he is on beta-jossy and calcium channel jossy, Cardiac diet DVT prophylaxis Lovenox Full code Attestations Medical Necessity Statement*: I am anticipating discharge in less than 48 hours continued overnight monitoring secondary to polypharmacy and generalized weakness with end-stage COPD Time Spent in Patient Care: (>than 50% of time spent in counselling and/or direct pt care on unit). 35 minutes Coding Level of Care Code Acute Entry Level Drafter for Khushboo Hyman Diagnoses End stage COPD J44.9 Pedal edema R60.0 Right-sided heart failure I50.810 Polypharmacy Z79.899
[2020-03-01 20:41] LABS: ABG PH Result 7.41 (7.35-7.45); Arterial Blood Gas Hematocrit 37.3 % (42-52); Base Excess ABG 21.8 mmol/L (-2.0-2.0); Blood Gas Allen Test Pos; Blood Gas Sample Site Brachial, right; Blood Gas Sample Type Arterial; HCO3 ABG 50.8 mmol/L (22-26); Oxygen Device NC; PO2 ABG 68.9 mmHg (80.0-100.0)
[2020-03-01 20:44] LABS: ABG PCO2 80.2 mmHg (35-45)
--- NOTE | 2020-03-01 20:56 | CTR_ITS ---
PROCEDURE INFORMATION: Exam: CT Angiography Chest With Contrast Exam date and time: 03/01/2020 9:17 PM Age: 64 years old Clinical indication: Shortness of breath; Additional info: Syncope TECHNIQUE: Imaging protocol: Computed tomographic angiography of the chest with intravenous contrast. 3D rendering (Not supervised by radiologist): MIP and/or 3D reconstructed images were created by the technologist. Radiation optimization: All CT scans at this facility use at least one of these dose optimization techniques: automated exposure control; mA and/or kV adjustment per patient size (includes targeted exams where dose is matched to clinical indication); or iterative reconstruction. Contrast material: OMNI 350; Contrast volume: 95 ml; Contrast route: INTRAVENOUS (IV); COMPARISON: CTA Chest-Pulmonary Emb [id number] 03/14/2018 12:18 AM RADIATION DOSE METRICS: Total DLP (mGy-cm): 527.2 FINDINGS: Pulmonary arteries: No visible pulmonary embolism/pulmonary arterial thrombus. Aorta: The thoracic aorta is nonaneurysmal. Mild arterial sclerotic disease. Lungs: Markedly advanced centrilobular emphysema with COPD/chronic bronchitis and panlobular emphysema. Evidence of antecedent granulomatous disease. Stable parenchymal scar left upper lobe. Stable parenchymal scar posterior segment right upper lobe. 6 mm pulmonary nodule posterior aspect of the apicoposterior segment left upper lobe that is not changed since 03/14/2018. Probable granuloma. Airway mucous scattered throughout the bilateral lungs with partial plugging of the proximal posterior left lower lobe bronchus. No visible acute interstitial or alveolar airspace disease. Pleural space: Unremarkable. No pneumothorax. No pleural effusion. Heart: Micro cardia. Coronary artery disease. Cor pulmonale. No visible pericardial effusion. Lymph nodes: No visible active mediastinal or hilar lymphadenopathy. Bones/joints: No visible acute osseous abnormality. Previous vertebroplasty T6. Osteopenia. Age-appropriate degenerative disease. Soft tissues: Unremarkable. CT/CT angio chest PE protcl [id number] IMPRESSION: No visible pulmonary embolism/pulmonary arterial thrombus. Chronic lung disease as discussed in detail in text above. Radiation Dose CTDIVOL = (mGy): DLP = 527.2 (mGy-cm)
--- NOTE | 2020-03-01 21:50 | PC.NURSE ---
Patient arrived to floor on 3L oxygen NC. Patient states he is weak and doesn't have much strength at this time. Patient has a wound on sacrum with optifoam placed. Vital signs WNL. Patient is resting in bed.
[2020-03-01] MEDS: enoxaparin 40 mg/0.4 mL Syringe SUBCUT (23:23)
[2020-03-01] MEDS: azithromycin 250 mg Tablet PO (23:23)
[2020-03-01] MEDS: morphine ER (12 HR) 15 mg Tablet PO (23:24)
[2020-03-02] VITALS (14 sets, daily range): BP systolic 116–136; BP diastolic 64–79; PULSE 69–88; RESP 13–22; TEMP 36.6–37.3; O2SAT 94–98
--- NOTE | 2020-03-02 03:33 | PC.NURSE ---
Patient previously attempted to void with only 25ml out. Patient stated that he needed to void but could not. Patient was bladder scanned resulting in 500 retaining. Patient sat on BSC for a while and was able to void 200. Will continue to monitor.
[2020-03-02 05:52] LABS: Basophils % 0.2 %; Hematocrit 36.2 % (42.0-52.0); Hemoglobin 11.2 g/dL (11.7-16.6); Lymphocytes # 1.7 10^3/uL (0.8-4.8); Lymphocytes % 29.8 %; Mean Corpuscular HGB Conc 30.9 g/dL (30.0-36.0); Mean Corpuscular Hemoglobin 29.8 pg (28.0-34.0); Mean Corpuscular Volume 96.3 fL (80-94); Mean Platelet Volume 12.7 fL (7.4-10.4); Monocytes # 0.5 10^3/uL (0.2-0.9); Neutrophils % 61.7 %; Nucleated Red Blood Cells % 0 %; Platelet Count 139 10^3/cmm (130-400); Red Blood Count 3.76 10^6/uL (4.1-5.3); Red Cell Distribution Width 12.5 % (12.1-15.1); White Blood Count 5.8 10^3/uL (4.0-10.0)
[2020-03-02 06:17] LABS: Anion Gap 7.2 (5-19); Blood Urea Nitrogen 12 mg/dL (8-23); Calcium 8.8 mg/dL (8.5-10.5); Chloride 85 mmol/L (98-107); Glomerular Filtration Rate 167.9 mL/min (90-130); Glucose 101 mg/dL (65-115); Osmolality Calculated 278 mOsm/kg (285-295); Potassium 4.2 mmol/L (3.5-5.1); Sodium 134 mmol/L (136-145)
[2020-03-02 06:21] LABS: Carbon Dioxide 46 mmol/L (22-29)
[2020-03-02] MEDS: roflumilast 500 mcg Tablet PO (08:37)
[2020-03-02] MEDS: spironolactone 25 mg Tablet PO (08:37)
[2020-03-02] MEDS: folic acid 1 mg Tablet PO (08:38)
[2020-03-02] MEDS: FUROsemide 20 mg Tablet PO (08:38)
[2020-03-02] MEDS: aspirin 81 mg EC Tablet PO (08:38)
[2020-03-02] MEDS: predniSONE 20 mg Tablet PO ×2 (08:38→17:19)
[2020-03-02] MEDS: morphine ER (12 HR) 15 mg Tablet PO ×2 (08:45→20:28)
[2020-03-02] MEDS: ipratropium-albuterol 3 mL Neb INHALATION ×3 (08:59→20:47)
[2020-03-02] MEDS: ondansetron 2 mg/ML SDV 2 mL 4 MG IVP (13:24)
--- NOTE | 2020-03-02 14:07 | P.PN_ITS ---
Subjective Subjective: Interval history: History and physical reviewed. Patient still reports significant shortness of breath when I saw him earlier this morning, on BiPAP. Reports he hurts all over. Medications: Reviewed: Yes Vitals/I&O/Wt Last Vital Signs Temp 97.9 F 03/02/20 11:53 Pulse 72 03/02/20 11:53 Resp 18 03/02/20 11:53 BP 135/77 03/02/20 11:53 Pulse Ox 97 03/02/20 11:53 03/01/20 03/02/20 03/02/20 22:59 06:59 14:59 Output Total 25 / 25 300 / 325 550 / 550 Balance -25 / -25 -300 / -325 -550 / -550 Weight last 48 hrs Weight 53.524 kg Physical Exam Narrative: EXAM NARRATIVE: General exam mild to moderate respiratory distress Cardiovascular regular rate and rhythm without murmur Lungs markedly diminished breath sounds bilaterally Abdomen is soft with positive bowel sounds Extremities no cyanosis clubbing or edema Data : 03/02/20 05:07 03/02/20 05:07 A&P Assessment and plan (1) End stage COPD: Significant acute on chronic hypercarbic respiratory failure. Has trilogy at home which he uses at night Encouraged him to use this during the day as needed as well. Acute COPD exacerbation present. Prednisone and a azithromycin initiated. DuoNeb every 4 hours scheduled Add inhaled steroid Status: Acute (2) Pedal edema: Status: Acute (3) Right-sided heart failure: Continue Aldactone, Lasix Await echocardiogram Status: Acute (4) Polypharmacy: Status: Acute Additional A&P Information Generalized weakness. PT consultation Cachexia Hypertension. Discontinue carvedilol. Monitor heart rate closely. Likely etiology end-stage COPD with right-sided heart failure Chronic pain. Continue extended release morphine. Add back oxycodone as needed secondary to his continued complaints of discomfort Elevated troponin, no evidence of significant delta at 120 minutes. 6-hour was not drawn. Patient without chest pain or ischemic changes on EKG. Full code Lovenox for DVT prophylaxis Attestations Medical Necessity Statement*: Needs continued hospitalization, secondary to acute COPD exacerbation requiring pulmonary toilet, antibiotics, steroids Coding Level of Care Code Acute Pharmacy Innovation Assistant for medardo Fwlakesha Diagnoses End stage COPD J44.9 Pedal edema R60.0 Right-sided heart failure I50.810 Polypharmacy Z79.899
[2020-03-02] MEDS: oxyCODONE 5 mg IR Tab/Cap PO (14:37)
[2020-03-02] MEDS: gabapentin 400 mg Capsule 800 MG PO ×2 (14:37→20:27)
[2020-03-02 17:15] LABS: Thyroid Stimulating Hormone 0.43 uIU/mL (0.27-4.20)
[2020-03-02] MEDS: budesonide 0.5 mg/2 mL Neb INHALATION (20:47)
[2020-03-02] MEDS: enoxaparin 40 mg/0.4 mL Syringe SUBCUT (20:55)
--- NOTE | 2020-03-02 22:24 | USCV_ITS ---
Harvey Guerra Age: 64 Gender: M : 1955 Exam Date: 03/02/2020 09:36 Ordering Phys: Grey Olson MD Technologist: Love Oshea Exam Location: [facility] [place] Indication: Right sided heart failure BP: 125 / 76 HR: 71 Rhythm: Sinus Technical Quality: Suboptimal MEASUREMENTS (Male / Female) Normal Values 2D ECHO LV Diastolic Diameter PLAX 4.0 cm 4.2 - 5.9 / 3.9 - 5.3 cm LV Systolic Diameter PLAX 2.8 cm LV Chamber Size 3.6 cm IVS Diastolic Thickness 0.9 cm 0.6 - 1.0 / 0.6 - 0.9 cm IVS Systolic Thickness 1.1 cm LVPW Diastolic Thickness 1.0 cm 0.6 - 1.0 / 0.6 - 0.9 cm LVPW Systolic Thickness 1.4 cm RV Chamber Size 2.4 cm LVOT Diameter 1.8 cm LV Ejection Fraction 2D Teich 59.6 % LA Diameter 2.9 cm LA Width 2.9 cm LA Height 3.3 cm RA Width 2.4 cm RA Height 3.2 cm Aorta at Sinotubular Diameter 3.1 cm M-MODE LV Diastolic Diameter MM 5.0 cm 4.2 - 5.9 / 3.9 - 5.3 cm LV Systolic Diameter MM 3.2 cm LV Ejection Fraction MM Teich 64.3 % IVS Diastolic Thickness MM 0.8 cm 0.6 - 1.0 / 0.6 - 0.9 cm IVS Systolic Thickness MM 1.2 cm LVPW Diastolic Thickness MM 0.9 cm 0.6 - 1.0 / 0.6 - 0.9 cm LVPW Systolic Thickness MM 1.4 cm RV Diastolic Diameter MM 2.0 cm Aortic Annulus Diameter 3.2 cm LA Ao Ratio MM 0.9 MV E Point Septal Separation 0.5 cm DOPPLER AV Peak Velocity 131.0 cm/s LVOT Peak Velocity 110.0 cm/s AV Area Cont Eq vti 2.0 cm squared AV Area Cont Eq pk 2.0 cm squared MV Area PHT 3.1 cm squared Mitral E to A Ratio 0.8 MV E' Velocity 6.0 cm/s Mitral E to MV E' Ratio 7.4 Mitral E to LV E' Lateral Ratio 8.1 Mitral E to LV E' Septal Ratio 7.0 TV Peak E Velocity 42.0 cm/s Right Atrial Pressure 8.0 mmHg PV Peak Velocity 95.0 cm/s RV Acceleration Time 0.1 s RV Ejection Time 0.2 s RV AcT/ET 0.4 FINDINGS Left Ventricle Normal left ventricular size, systolic function and wall thickness, with no regional wall motion abnormalities. LV systolic function is normal with EF of 60 to 65%. Normal left ventricular wall thickness. Grade 1 diastolic dysfunction is noted. Technically limited study because no apical windows are available. Right Ventricle The right ventricle is mildly dilated with mild reduction in function. Right Atrium The right atrium is normal in size. Left Atrium The left atrium is normal in size. Mitral Valve Structurally normal mitral valve without significant stenosis or prolapse. There is no mitral regurgitation. Aortic Valve Aortic valve is thickened without any evidence of stenosis.. There is no aortic regurgitation. Tricuspid Valve Structurally normal tricuspid valve without significant stenosis or regurgitation. Pulmonary artery systolic pressure is normal. Pulmonic Valve Structurally normal pulmonic valve without significant stenosis. Insufficient TR jet to calculate RVSP. Pericardium Normal pericardium without effusion. Aorta Normal ascending aorta dimension. CONCLUSIONS This is technically limited study because of no apical windows. LV systolic function is normal with a EF of 60 to 65%. Grade 1 diastolic dysfunction. Mildly dilated RV Insufficient TR jet to calculate RVSP. Compared to prior echo of 2018, mild dilation of RV is noted. Suhas Mccabe MD (Electronically Signed) Final Date: 02 March 2020 11:53 S
[2020-03-03] VITALS (19 sets, daily range): BP systolic 111–143; BP diastolic 63–78; PULSE 67–118; RESP 16–20; TEMP 36.6–37.1; O2SAT 93–99
[2020-03-03] MEDS: ipratropium-albuterol 3 mL Neb INHALATION ×6 (00:02→23:56)
[2020-03-03] MEDS: oxyCODONE 5 mg IR Tab/Cap PO ×3 (04:31→18:30)
[2020-03-03 05:39] LABS: Hematocrit 34.4 % (42.0-52.0); Hemoglobin 10.7 g/dL (11.7-16.6); Lymphocytes # 1.6 10^3/uL (0.8-4.8); Lymphocytes % 24.9 %; Mean Corpuscular HGB Conc 31.1 g/dL (30.0-36.0); Mean Corpuscular Hemoglobin 29.5 pg (28.0-34.0); Mean Corpuscular Volume 94.8 fL (80-94); Mean Platelet Volume 12.6 fL (7.4-10.4); Monocytes # 0.5 10^3/uL (0.2-0.9); Monocytes % 7.7 %; Neutrophils # 4.21 10^3/uL (1.8-7.7); Neutrophils % 67.1 %; Nucleated Red Blood Cells % 0 %; Platelet Count 128 10^3/cmm (130-400); Red Blood Count 3.63 10^6/uL (4.1-5.3); Red Cell Distribution Width 12.7 % (12.1-15.1); White Blood Count 6.3 10^3/uL (4.0-10.0)
[2020-03-03 05:58] LABS: Anion Gap 10.2 (5-19); Blood Urea Nitrogen 11 mg/dL (8-23); Calcium 9.1 mg/dL (8.5-10.5); Carbon Dioxide 40 mmol/L (22-29); Chloride 88 mmol/L (98-107); Glomerular Filtration Rate 136.1 mL/min (90-130); Glucose 109 mg/dL (65-115); Osmolality Calculated 278 mOsm/kg (285-295); Potassium 4.2 mmol/L (3.5-5.1); Sodium 134 mmol/L (136-145)
[2020-03-03] MEDS: budesonide 0.5 mg/2 mL Neb INHALATION ×2 (07:43→20:23)
[2020-03-03] MEDS: FUROsemide 20 mg Tablet PO (09:41)
[2020-03-03] MEDS: morphine ER (12 HR) 15 mg Tablet PO ×2 (09:41→21:16)
[2020-03-03] MEDS: aspirin 81 mg EC Tablet PO (09:42)
[2020-03-03] MEDS: fluoxetine 10 mg Capsule PO (09:43)
[2020-03-03] MEDS: folic acid 1 mg Tablet PO (09:43)
[2020-03-03] MEDS: roflumilast 500 mcg Tablet PO (09:43)
[2020-03-03] MEDS: gabapentin 400 mg Capsule 800 MG PO ×3 (09:43→21:16)
[2020-03-03] MEDS: predniSONE 20 mg Tablet PO ×2 (09:44→18:30)
[2020-03-03] MEDS: spironolactone 25 mg Tablet PO (09:44)
--- NOTE | 2020-03-03 10:06 | PC.CHAP ---
Pastoral Care Encounter/Spiritual Assessment Type of Contact [] Declined jewel staker visit [] Patient/Family/Request visit [] Outpatient visit [] Follow-up visit [] Physician referral [] Code/Alert [x] Routine visit [] Staff referral [] Actively dying [] Patient sleeping [] Family support [] [] Out of room [] Palliative care [] [] Receiving care in room [] Pre-surgical visit [] Trauma [] Long length of stay [] ICU visit [] Other: Relational/Emotional Strength [x] Patient feels connected with others/family/visitors/staff [] Distress [] Loneliness/isolation [] Abandonment Spirituality of Patient [x] Person of Raven [] Attends Restorationist of their Raven [x] Believes in Prayer [] Reads Bible or Mormon materials [] There are Spiritual issues to be addressed Macaroni Press Operator Interventions [x] Prayer [x] Active listening [x] Non-anxious presence [x] Spiritual/emotional support [] Crisis/trauma care [] Spiritual counseling [] Bereavement support [] Provided bereavement packet [] Provided Bible/devotional materials [] Provided toy/stuffed animal, coloring book to patient or family member [] Provided Communion [] Anointing/[place] [] Salvation [x] Completed spiritual assessment [] Other: Impact on Illness or Injury [] Angry [] Fearful [] Anxious [] Often cries [] Exhaustion [] Unable to work [] Unable to attend latter day [] Unable to walk/stand [] Unable to read [] Unable to drive [] Unable to eat/drink [] Unable to sleep [] Unable to be with family [] Patient intubated [] Other: Summary Chaplains Mike and Deepthi Knox visited and prayed with Patient. Time spent with patient 10 minutes.
--- NOTE | 2020-03-03 11:29 | PM.PN ---
Subjective Subjective: Interval history: Harvey reports his breathing is still a little rough. He has been able to stay off BiPAP. Cough on occasion. Medications: Reviewed: Yes Vitals/I&O/Wt Last Vital Signs Temp 98.0 F 03/03/20 07:21 Pulse 91 03/03/20 11:14 Resp 18 03/03/20 11:14 BP 124/78 03/03/20 07:21 Pulse Ox 97 03/03/20 11:14 03/02/20 03/03/20 03/03/20 22:59 06:59 14:59 Intake Total 120 / 120 240 / 240 Output Total 450 / 1000 300 / 1300 Balance -330 / -880 -300 / -1180 240 / 240 Weight last 48 hrs Weight 53.524 kg Physical Exam Narrative: EXAM NARRATIVE: General exam mild to moderate respiratory distress Cardiovascular regular rate and rhythm without murmur Lungs diminished breath sounds bilaterally but perhaps a little bit better aeration but than yesterday Abdomen is soft with positive bowel sounds Extremities no cyanosis clubbing or edema Data : 03/03/20 05:16 03/03/20 05:16 A&P Assessment and plan (1) End stage COPD: Significant acute on chronic hypercarbic respiratory failure. Has trilogy at home which he uses at night Encouraged him to use this during the day as needed as well. Acute COPD exacerbation present. Continue prednisone and a azithromycin DuoNeb every 4 hours scheduled Continue inhaled steroid Probable discharge tomorrow Status: Acute (2) Pedal edema: Status: Acute (3) Right-sided heart failure: Continue Aldactone, Lasix Await echocardiogram Status: Acute (4) Polypharmacy: Status: Acute Additional A&P Information Generalized weakness. PT consultation Cachexia Hypertension. Discontinue carvedilol. Monitor heart rate closely. Likely etiology end-stage COPD with right-sided heart failure Chronic pain. Continue extended release morphine. Oxycodone was added back which he is tolerating well. Elevated troponin, no evidence of significant delta at 120 minutes. 6-hour was not drawn. Patient without chest pain or ischemic changes on EKG. Echo showed preserved EF, with no wall motion abnormalities. Full code Lovenox for DVT prophylaxis Attestations Medical Necessity Statement*: Needs continued hospitalization, for pulmonary toilet secondary to acute COPD exacerbation. Coding Level of Care Code Acute Head Of Sales Promotion for Chg Fwd Diagnoses End stage COPD J44.9 Pedal edema R60.0 Right-sided heart failure I50.810 Polypharmacy Z79.899
--- NOTE | 2020-03-03 18:47 | PC.NURSE ---
PT HAS HAD A GOOD DAY. PT WAS TIRED THIS MORNING AND APPEARED TO BE WEAK. THE DAY WENT ON PT GOT STRONGER. PT WAS SINUS TACH THIS MORNING RUNNING AROUND 102-110. THE DAY WENT ON, HIS HEART RATE SETTLED DOWN TO THE UPPER 70S - LOWER 80S AND HAS BEEN AROUND THAT RANGE EVER SINCE. HE IS UP AND USING THE BEDSIDE COMMODE WITH MINIMAL TO NO ASSISTANCE. HE IS DOING GOOD ON 3L OF OXYGEN NC. HE DOES NOT APPEAR TO BE SHORT OF BREATH AND DOES NOT COMPLAIN OF THIS. PT WAS UP TO THE CHAIR ONCE TODAY FOR A COUPLE OF HOURS BEFORE AND AFTER LUNCH. AFTER LUNCH THE AID HELPED HIM TO THE SHOWER AND HE SAID HE FELT MUCH BETTER AND THAT HE TOLERATED IT WELL. PLANNING TO DISCHARGE PT HOME WITH [facility] TOMORROW. PT IS ALERT AND ORIENTATED. PT IS NOT SHORT OF BREATH AT THIS TIME. CONTINUING TO MONITOR.
[2020-03-03] MEDS: enoxaparin 40 mg/0.4 mL Syringe SUBCUT (21:16)
[2020-03-03] MEDS: azithromycin 250 mg Tablet PO (22:23)
[2020-03-04] VITALS (20 sets, daily range): BP systolic 113–131; BP diastolic 61–78; PULSE 80–129; RESP 16–22; TEMP 36.7–36.9; O2SAT 86–99
[2020-03-04 05:37] LABS: Hematocrit 33.8 % (42.0-52.0); Hemoglobin 10.5 g/dL (11.7-16.6); Lymphocytes # 1.4 10^3/uL (0.8-4.8); Mean Corpuscular HGB Conc 31.1 g/dL (30.0-36.0); Mean Corpuscular Hemoglobin 29.6 pg (28.0-34.0); Mean Corpuscular Volume 95.2 fL (80-94); Mean Platelet Volume 12.9 fL (7.4-10.4); Monocytes # 0.4 10^3/uL (0.2-0.9); Monocytes % 6.2 %; Neutrophils # 5.06 10^3/uL (1.8-7.7); Neutrophils % 73.2 %; Nucleated Red Blood Cells % 0 %; Platelet Count 133 10^3/cmm (130-400); Red Blood Count 3.55 10^6/uL (4.1-5.3); Red Cell Distribution Width 12.9 % (12.1-15.1); White Blood Count 6.9 10^3/uL (4.0-10.0)
[2020-03-04 05:55] LABS: Anion Gap 9.9 (5-19); Blood Urea Nitrogen 11 mg/dL (8-23); Calcium 8.9 mg/dL (8.5-10.5); Carbon Dioxide 36 mmol/L (22-29); Chloride 94 mmol/L (98-107); Glomerular Filtration Rate 136.1 mL/min (90-130); Glucose 113 mg/dL (65-115); Osmolality Calculated 282 mOsm/kg (285-295); Potassium 3.9 mmol/L (3.5-5.1); Sodium 136 mmol/L (136-145)
[2020-03-04] MEDS: oxyCODONE 5 mg IR Tab/Cap PO ×3 (07:33→19:31)
--- NOTE | 2020-03-04 07:54 | PC.NURSE ---
Skin tear to left hand has small bleeding noted, cleaned and applied optifoam, denies shortness of breath this morning reports, i am feeling at my baseline. alert and oriented.
[2020-03-04] MEDS: budesonide 0.5 mg/2 mL Neb INHALATION ×2 (09:15→21:00)
[2020-03-04] MEDS: ipratropium-albuterol 3 mL Neb INHALATION ×4 (09:15→21:01)
--- NOTE | 2020-03-04 09:44 | PM.DCS ---
Discharge Providers Date of Admission: 03/02/20 14:20 Date of Discharge: March 04, 2020 Attending Provider at Admission: Grey Olson MD Attending Provider at Discharge: Tej Dickson Primary Care Provider: Ortega Woods MD Diagnoses at Discharge Discharge Diagnosis (1) End stage COPD: Status: Acute (2) Pedal edema: Status: Acute (3) Right-sided heart failure: Status: Acute (4) Polypharmacy: Status: Acute Reason for Visit Reason for Visit: SOB/ WEAKNESS/ MULTI FALLS Hospital Course Hospital Course: 64-year-old gentleman with advanced COPD, chronically on 3 L oxygen by nasal cannula, with generalized weakness, noted acute exacerbation of COPD, received treatment with prednisone, breathing treatments, azithromycin, inhaled steroid. Lower extremity edema noted with suspected right-sided heart failure was continued on spironolactone and with addition of Lasix. Edema had resolved. CT of the chest was obtained without finding of PE. Troponin noted mildly elevated on presentation, without significant delta. No chest pain. Echocardiogram with normal ejection fraction, grade 1 diastolic dysfunction, mildly dilated RV. He remained stable on 3 L of oxygen that he uses at home. Today got up to walk around with PT. He did get somewhat tachycardic afterwards. Overall says is doing better. Will complete prednisone taper, course of azithromycin. Added Roflumilast. Follow-up with pulmonology in office. Home oxygen evaluation is ordered. On discharge continue home health, lives alone but states has some friends who would be able to help him out if he needs anything at home. Physical Exam Const: COMMON NORMALS: no acute distress and patient oriented x3 NUTRITIONAL APPEARANCE: thin HENMT: COMMON NORMALS: oropharynx normal Neck/C-Spine: COMMON NORMALS: no JVD Resp: COMMON NORMALS: normal respiratory effort AUSCULTATION: diminished lung sounds Cardio: COMMON NORMALS: no JVD, regular rhythm, S1 normal heart sound present, S2 normal heart sound present and No murmurs present (Cardio) RHYTHM: regular rhythm HEART SOUNDS: S1 normal heart sound present and S2 normal heart sound present GI: COMMON NORMALS: Normal to inspection, nondistended, normoactive bowel sounds present, Soft to palpation and non-tender PALPATION: Yes Soft to palpation Extremity: COMMON NORMALS: no joint enlargement and no pedal edema Neuro: COMMON NORMALS: patient oriented x3 and moves all extremities Skin: COMMON NORMALS: no rashes or lesions noted GENERAL SKIN EXAM: no rashes or lesions noted Discharge Data Data Completed and Pending: Completed Studies During Hospitalization Category Date Time Status CT head wo con* 7 0450 Urgent Cat Scan 03/01/20 15:03 Completed CTA chest [CT ang io chest PE protcl [id number]] Stat Cat Scan 03/01/20 20:56 Completed XR chest 1V bernard ble [id number] Urgent Exams 03/01/20 15:03 Completed XR foot LT min 3V * [id number] Stat Exams 03/01/20 15:23 Completed XR foot RT min 3V * [id number] Stat Exams 03/01/20 15:23 Completed CV echo complete* [id number] Routine Ultrasound 03/02/20 22:24 Completed Labs from last 24 hours 03/04/20 03/04/20 04:54 04:54 WBC 6.9 RBC 3.55 L Hgb 10.5 L Hct 33.8 L MCV 95.2 H MCH 29.6 MCHC 31.1 RDW 12.9 Plt Count 133 MPV 12.9 H Neut % (Auto) 73.2 Lymph % (Auto) 20.0 [place] % (Auto) 6.2 Eos % (Auto) 0.0 Baso % (Auto) 0.0 Neut # (Auto) 5.06 Lymph # (Auto) 1.4 [place] # (Auto) 0.4 Eos # (Auto) 0.0 Baso # (Auto) 0.0 Nucleated RBC % (a uto) 0 Nucleated RBCs # 0.0 Sodium 136 Potassium 3.9 Chloride 94 L Carbon Dioxide 36 H Anion Gap 9.9 BUN 11 Creatinine 0.6 L GFR Calculation 136.1 H Glucose 113 Calculated Osmolal ity 282 L Calcium 8.9 Vitals: Last Vital Signs Temp 98.1 F 03/04/20 07:57 Pulse 110 H 03/04/20 09:19 Resp 22 H 03/04/20 09:16 BP 131/78 03/04/20 07:57 Pulse Ox 86 L 03/04/20 09:20 Discharge Plan Discharge Patient Disposition: Home Health Service Condition: Stable Prescriptions: New Daliresp 500 mcg Tablet 500 mcg PO DAILY Qty: 30 RF: 0 prednisone 20 mg Tablet See Rx Instructions .ROUTE .COMPLEX Qty: 11 RF: 0 azithromycin 250 mg Tablet 250 mg PO Q24H Qty: 5 RF: 0 furosemide 20 mg Tablet 20 mg PO DAILY@0800 PRN (Reason: Edema) Qty: 15 RF: 0 Continued oxycodone 5 mg tablet 5 mg PO Q6H PRN (Reason: Pain) RF: 0 morphine 30 mg capsule, ER multiphase 24 hr 30 mg PO Q12H RF: 0 gabapentin 800 mg tablet 800 mg PO TID RF: 0 aspirin 81 mg tablet,delayed release (DR/EC) 81 mg PO ONCE RF: 0 montelukast [Singulair] 10 mg tablet 10 mg PO ONCE RF: 0 fluoxetine 10 mg tablet 10 mg PO DAILY RF: 0 tizanidine 4 mg tablet 4 mg PO TID PRN (Reason: MUSCLE SPASMS) RF: 0 spironolactone 25 mg tablet 25 mg PO DAILY RF: 0 folic acid 1 mg tablet 1 mg PO DAILY RF: 0 albuterol sulfate [Ventolin HFA] 90 mcg/actuation HFA aerosol inhaler 2 puff INHALATION Q6H PRN (Reason: Shortness Of Breath) RF: 0 lorazepam 0.5 mg tablet 0.5 mg PO DAILY PRN (Reason: Anxiety) RF: 0 carvedilol 12.5 mg tablet 6.25 mg PO BID RF: 0 albuterol sulfate 2.5 mg /3 mL (0.083 %) solution for nebulization 2.5 mg INHALATION Q6H PRN (Reason: Shortness Of Breath) RF: 0 metoprolol succinate 25 mg tablet extended release 24 hr 25 mg PO DAILY 90 Days Qty: 90 RF: 3 formoterol fumarate [Perforomist] 20 mcg/2 mL solution for nebulization See Rx Instructions .ROUTE .COMPLEX Qty: 60 RF: 11 revefenacin [Yupelri] 175 mcg/3 mL solution for nebulization See Rx Instructions .ROUTE .COMPLEX Qty: 30 RF: 11 budesonide 0.5 mg/2 mL suspension for nebulization See Rx Instructions .ROUTE .COMPLEX Qty: 60 RF: 11 Discharge Orders: Discharge Order (Routine); Ordered 03/04/20 Ordered By: Tej Dickson Referrals: Ortega Woods MD [Primary Care Provider] - 03/13/20 2:15 pm (You have a hospital follow up appointment on March 13 at 2:15pm) Lucila Galdamez MD [Physician] - 1 month Discharge Activity: As per PT/OT instructions and Oxygen as instructed Patient Instructions: COPD, Furosemide (By mouth), Prednisone (By mouth), Azithromycin (By mouth), Roflumilast (By mouth), Heart Failure (DC), Using Oxygen at Home (DC), Weakness (GEN) Activity Restrictions/Additional Instructions: Please wear your oxygen at all times and use her trilogy as instructed. Continue to abstain from smoking. If you get significant swelling in extremities, shortness of breath when lying down flat, weight gain in short amount of time, you can take a Lasix dose as needed. Otherwise do not take on a daily basis. If you experience significant shortness of breath, chest pain or pressure, high fever, very fast breathing, skin color changes, or other abnormal symptoms, please seek medical attention without delay. Discharge Attestations Time Spent in Discharge Care*: greater than 30 min Quality Metrics Clinical Quality Measures During this hospital stay, did patient experience: None Coding Level of Care Code Acute Dumpster Operator for Khushboo Hyman Diagnoses End stage COPD J44.9 Pedal edema R60.0 Right-sided heart failure I50.810 Polypharmacy Z79.899
[2020-03-04] MEDS: gabapentin 400 mg Capsule 800 MG PO ×3 (11:07→21:33)
[2020-03-04] MEDS: folic acid 1 mg Tablet PO (11:07)
[2020-03-04] MEDS: morphine ER (12 HR) 15 mg Tablet PO ×2 (11:07→21:33)
[2020-03-04] MEDS: spironolactone 25 mg Tablet PO (11:08)
[2020-03-04] MEDS: aspirin 81 mg EC Tablet PO (11:08)
[2020-03-04] MEDS: FUROsemide 20 mg Tablet PO (11:08)
[2020-03-04] MEDS: predniSONE 20 mg Tablet PO ×2 (11:08→17:29)
[2020-03-04] MEDS: fluoxetine 10 mg Capsule PO (11:08)
[2020-03-04] MEDS: roflumilast 500 mcg Tablet PO (11:08)
--- NOTE | 2020-03-04 12:02 | PC.NURSE ---
Dr. Dickson notified of patient report of chest pain, vitals heart rate 97-120, blood pressure 143/80. new orders received to get STAT ekg and troponin series.
--- NOTE | 2020-03-04 12:06 | ECG_ITS ---
[facility] Test Date: 2020-03-04 Pat Name: Harvey Guerra Department: Room: 256 Gender: Male Client Services Vice President: : 1955 Requested By: Tej Dickson Order Number: [id number] Bud MD: Suhas Mccabe M.D. Measurements Intervals [place] Rate: 97 P: 87 OK: 132 QRS: 93 QRSD: 85 T: 75 QT: 345 QTc: 439 Interpretive Statements SINUS RHYTHM RIGHT ATRIAL ENLARGEMENT [0.3mV P WAVE] BORDERLINE RIGHT AXIS DEVIATION [QRS AXIS > 90] Compared to ECG 03/01/2020 17:59:52 Atrial abnormality now present Electronically Signed On 03-04-2020 19:00:22 CDT by uShas Mccabe M.D. [id number]
--- NOTE | 2020-03-04 12:48 | PC.NURSE ---
Patient sitting up in bed, reports pain to chest has resolved and hot flashes resolved. reports pain to back and neck 7 on 0-10 pain scale, requesting pain medication for that when available, see MAR for further details.
[2020-03-04 13:02] LABS: Troponin(5th) Baseline 28 ng/L (0-15)
--- NOTE | 2020-03-04 14:06 | ECG_ITS ---
[facility] Test Date: 2020-03-04 Pat Name: Harvey Guerra Department: Room: 256 Gender: Male Social Psychologist: : 1955 Requested By: Tej Dickson Order Number: [id number] Bud MD: Suhas Mccabe M.D. Measurements Intervals [place] Rate: 92 P: 82 DC: 135 QRS: 94 QRSD: 81 T: 61 QT: 340 QTc: 422 Interpretive Statements SINUS RHYTHM RIGHT ATRIAL ENLARGEMENT [0.3mV P WAVE] BORDERLINE RIGHT AXIS DEVIATION [QRS AXIS > 90] Compared to ECG 03/04/2020 13:54:00 NO SIGNIFICANT CHANGES NOTED Electronically Signed On 03-04-2020 19:32:32 CDT by Suhas Mccabe M.D. [id number]
[2020-03-04 14:36] LABS: Troponin 5 2HR 28.66 ng/L (0-15); Troponin 5 2HR Delta 0.66 ABS# (0-10)
--- NOTE | 2020-03-04 18:17 | PC.RESP ---
Pulmonary Rehab information sent to patient.
[2020-03-04 19:33] LABS: Troponin 5 6HR 23.72 ng/L (0-15)
[2020-03-04 19:38] LABS: Troponin 5 6HR Delta -4.28 ng/L (0-12)
[2020-03-04] MEDS: enoxaparin 40 mg/0.4 mL Syringe SUBCUT (21:33)
[2020-03-05] VITALS (11 sets, daily range): BP systolic 124–132; BP diastolic 72–76; PULSE 76–108; RESP 17–20; TEMP 36.8; O2SAT 97–98
[2020-03-05] MEDS: ipratropium-albuterol 3 mL Neb INHALATION ×3 (00:35→07:44)
[2020-03-05] MEDS: oxyCODONE 5 mg IR Tab/Cap PO (03:44)
[2020-03-05] MEDS: budesonide 0.5 mg/2 mL Neb INHALATION (07:44)
--- NOTE | 2020-03-05 08:49 | DCPLANNER ---
Pg 2 of IM updated and reviewed with Pt. No questions, copy provided.
[2020-03-05] MEDS: folic acid 1 mg Tablet PO (08:51)
[2020-03-05] MEDS: gabapentin 400 mg Capsule 800 MG PO (08:51)
--- NOTE | 2020-03-05 08:51 | PM.PN ---
Subjective Subjective: Interval history: Please refer to discharge summary from 03/04. Discharge delayed due to episode of chest pain and tachycardia. Left-sided. Sharp. Currently resolved. Discussed with him so far troponin EKG results. Baseline 28, 2-hour 28.66 without significant delta. Tachycardia is better, heart rate still in the 90s. He is feeling better, however, his right for the day has left. Complete troponin EKG series, monitored overnight. Today he is feeling much better. No chest pain or pressure. Troponin as discussed with him minimally elevated without peak and no ischemic changes suggest acute OR currently on EKG. He is feeling strong and confident about returning home. Vitals/I&O/Wt Last Vital Signs Temp 98.2 F 03/05/20 08:00 Pulse 108 H 03/05/20 08:00 Resp 20 H 03/05/20 08:00 BP 131/76 03/05/20 08:00 Pulse Ox 98 03/05/20 08:00 03/04/20 03/05/20 03/05/20 22:59 06:59 14:59 Intake Total 118 / 598 Output Total 250 / 450 400 / 850 Balance -132 / 148 -400 / -252 Physical Exam Const: COMMON NORMALS: no acute distress and patient oriented x3 NUTRITIONAL APPEARANCE: thin HENMT: COMMON NORMALS: oropharynx normal Neck/C-Spine: COMMON NORMALS: no JVD Resp: COMMON NORMALS: normal respiratory effort AUSCULTATION: diminished lung sounds Cardio: COMMON NORMALS: no JVD, regular rhythm, S1 normal heart sound present, S2 normal heart sound present and No murmurs present (Cardio) RHYTHM: regular rhythm HEART SOUNDS: S1 normal heart sound present and S2 normal heart sound present GI: COMMON NORMALS: Normal to inspection, nondistended, normoactive bowel sounds present, Soft to palpation and non-tender PALPATION: Yes Soft to palpation Extremity: COMMON NORMALS: no joint enlargement and no pedal edema OTHER: Bruising, mild swelling, mild tenderness distal L foot Neuro: COMMON NORMALS: patient oriented x3 and moves all extremities Skin: COMMON NORMALS: no rashes or lesions noted GENERAL SKIN EXAM: no rashes or lesions noted Data : 03/04/20 04:54 03/04/20 04:54 A&P Assessment and plan (1) End stage COPD: Significant acute on chronic hypercarbic respiratory failure. Has trilogy at home which he uses at night Encouraged him to use this during the day as needed as well. Acute COPD exacerbation present. Continue prednisone and a azithromycin DuoNeb every 4 hours scheduled Continue inhaled steroid Probable discharge tomorrow Status: Acute (2) Pedal edema: Status: Acute (3) Right-sided heart failure: Continue Aldactone, Lasix Await echocardiogram Status: Acute (4) Polypharmacy: Status: Acute Additional A&P Information Episode of chest pain: On 03/04, left side, atypical, without significant rise in troponin, or suggestion of acute OR by EKG. Pain is resolved. CTA 03/01 was negative for PE. He has been on DVT prophylaxis. Given his respiratory condition, COPD exacerbation, this is suspected related to his respiratory condition, possibly with chest wall pain. Today he is feeling much better. Respirations remain unchanged. Oxygenation good on his baseline oxygen. Air entry continues to improve on exam. Swelling, bruising of distal left foot after fall: No fractures on x-ray. Reports some tenderness there. Discussed with strategies to rest, elevate, cold compress Generalized weakness. PT Cachexia Hypertension. Discontinue carvedilol. Monitor heart rate closely. Likely etiology end-stage COPD with right-sided heart failure Chronic pain. Continue extended release morphine. Oxycodone was added back which he is tolerating well. Elevated troponin, no evidence of significant delta at 120 minutes. 6-hour was not drawn. Patient without chest pain or ischemic changes on EKG. Echo showed preserved EF, with no wall motion abnormalities. Full code Lovenox for DVT prophylaxis Attestations Medical Necessity Statement*: Returning home today. Coding Level of Care Code Acute Wildlife Protector for Khushboo Hyman Diagnoses End stage COPD J44.9 Pedal edema R60.0 Right-sided heart failure I50.810 Polypharmacy Z79.899
[2020-03-05] MEDS: FUROsemide 20 mg Tablet PO (08:52)
[2020-03-05] MEDS: fluoxetine 10 mg Capsule PO (08:52)
[2020-03-05] MEDS: roflumilast 500 mcg Tablet PO (08:52)
[2020-03-05] MEDS: aspirin 81 mg EC Tablet PO (08:52)
[2020-03-05] MEDS: spironolactone 25 mg Tablet PO (08:52)
[2020-03-05] MEDS: morphine ER (12 HR) 15 mg Tablet PO (08:52)
[2020-03-05] MEDS: predniSONE 20 mg Tablet PO (08:52)
--- NOTE | 2020-03-05 10:05 | PC.NURSE ---
discharge instructions completed, denies further questions or concerns.
== END 2020-03-05 10:32 | disposition home health service (06) | DRG 191 ==
LOC: ER 19:45 → MEDSURG 21:00
PROVIDERS: Emergency Medicine; Internal Medicine; Nurse Practitioner Family; Admitting Provider Internal Medicine; PCP Family Medicine; Visit Provider Internal Medicine
DX: J44.1 Chronic obstructive pulmonary disease with (acute) exacerbation (principal); J96.12 Chronic respiratory failure with hypercapnia; J96.11 Chronic respiratory failure with hypoxia; Z99.81 Dependence on supplemental oxygen; Z79.82 Long term (current) use of aspirin; I50.810 Right heart failure, unspecified; I25.2 Old myocardial infarction; I10 Essential (primary) hypertension; Z87.891 Personal history of nicotine dependence; Z79.891 Long term (current) use of opiate analgesic
CPT/HCPCS: 12345; 36415; 36600; 70450; 71045; 71275; 73630; 80048; 80053; 81001; 82803; 83605; 83735; 83880; 84443; 84484; 85025; 87426; 93005; 93306; 94640; 94660; 96372; 96375; 97116; 97161; 97530; 99284; G0378; J1650; J2405; J2930; J3535; J7512; J7626; Q0144